=== PATIENT | female | born 1965 | race African-American/Black ===

== ENCOUNTER 2016-12-18 19:56 | Emergency (ER) | payer OTHER ==
--- NOTE | 2016-12-18 20:17 | ED Physician Documentation ---
Headache - HISTORIAN Historian: patient - HPI Chief Complaint: Headache Additional Information: started yesterday. worst headache of her life. front and back and sides, no other symptoms, pain is only symptom. takes BP medicine, when she needs it. her BP is154/86. gets 1 headache a year. tylenol usually works. Onset: days ago Timing: gradual, still present New Gradual Onset: Yes Exposure To: none Severity: mild Quality: throbbing Associated Symptoms: denies: fever, chills, sweating, problems with vision, sensitivity to light, nausea, vomiting, neck pain, stiffness, speech problems, weakness, trouble walking, tingling, numbness, dizziness, light-headedness Preceding Symptoms: denies: visual disturbance, scotoma Exacerbated By: denies: light, noise, movement, position Further Comments: no Last known Well Code/Unknown Code: Unknown - ROS NEURO/PSYCH: denies: confusion EYES/ENT: denies: sore throat, difficulty swallowing CVS/RESP: none GI/: denies: abdominal pain MS/SKIN/LYMPH: denies: muscle aches, back pain all systems neg except as marked: Yes - PAST HX Medical History: hypertension Surgical History: angioplasty, other (thyroid lobectomy 2015) Allergies/Adverse Reactions: Allergies Allergy/AdvReac Type Severity Reaction Status Date / Time morphine Allergy Mild Rash Verified 12/18/16 20:11 prednisone Allergy Verified 12/18/16 20:11 Home Medications: Ambulatory Orders Medication Instructions Recorded Cholecalciferol (Vitamin D3) 5,000 unit PO DAILY av 06/26/14 [Vitamin D3] - SOCIAL HX Smoking History: non-smoker Alcohol Use: none Drug Use: none - Family HX Family History: none - VITAL SIGNS Vital Signs: Vital Signs Temp Pulse Resp BP Pulse Ox 98.3 F 71 16 144/88 98 12/18/16 20:02 12/18/16 20:02 12/18/16 20:02 12/18/16 20:02 12/18/16 20:02 - REVIEWED ASSESSMENTS Nursing Assessment Reviewed: Yes Vitals Reviewed: Yes ED Results Lab/Radiology - Radiology Radiology Impressions: CT neg - Orders Orders: ED Orders Category Date Time Status CT BRAIN W/O CONTRAST Stat Exams 12/18/16 Taken Headache Physical Exam - EXAM General Appearance: no acute distress, alert EENT: no facial swelling, eyes nml inspection, PERRL. No: pain over sinuses Neck: normal inspection Respiratory: no resp distress Abdomen: non-tender Skin: color nml, no rash Extremitites: non-tender, normal range of motion, no evidence of injury - NEURO/PSYCH Higher Functions: alert, oriented x3, nml speech, mood/affect nml Cranial: nml as tested, no evidence of acute CVA Cerebellar: nml as tested Sensorimotor: motor nml, sensation nml Discharge Clincal Impression: Headache Qualifiers: Headache type: unspecified Headache chronicity pattern: acute headache Intractability: intractable Qualified Code(s): R51 - Headache Hypertension Qualifiers: Hypertension type: essential hypertension Qualified Code(s): I10 - Essential ( primary) hypertension Referrals: Primary Doctor,No [Primary Care Provider] - 2 Days Home Medications: Ambulatory Orders Cholecalciferol (Vitamin D3) [Vitamin D3] 5,000 unit PO DAILY av 06/26/14 Condition: Stable Disposition: 01 HOME, SELF-CARE Decision to Admit: NO Date of Decison to Admit: 12/18/16 Decision Time: 21:18
[2016-12-18] MEDS ORDERED: METOCLOPRAMIDE HCL 5 MG TABLET PO ONE (21:15)
[2016-12-18] MEDS ORDERED: KETOROLAC TROMETHAMINE 30 MG/1ML VIAL IM ONE (21:16)
[2016-12-18] MEDS ORDERED: HYDROcodone /APAP 5/325 1 EACH TABLET PO ONE (21:16)
[2016-12-18 21:52] VITALS: BP 154/94
--- NOTE | 2016-12-19 07:01 | Diagnostic Imaging Report ---
JANETT WHITE [facility] [address] [facility] [address] [place] [address]. [address] Report Submission Date: Dec 18, 2016 8:38:01 PM CDT Patient Study Name: HUMBERTO SABILLON Date: Dec 18, 2016 8:22:50 PM CDT Modality Type: CT\SR Gender: F Description: CT BRAIN W/O CONTRAST : 61 Institution: [facility] Physician: JANETT WHITE CT HEAD WO CONTRAST History: HEADACHE THAT STARTED APPROX 24 HOURS AGO, PT STATES WORST HEADACHE SHE 'S EVER HAD Technique: Standard noncontrast CT was performed with contiguous axial images acquired from skull base to vertex. Findings: There is no acute extra-axial fluid collection. Ventricles are of normal size, shape, and morphology. No mass effect or midline shift is present. No evidence of acute hemorrhage. The winters-white matter differentiation is normal. The visualized portions of the orbits, and paranasal sinuses, and mastoids are normal. No fractures are identified. Impression: 1. Normal non contrast brain CT. Electronically signed on Dec 18, 2016 8:38:01 PM CDT by: Shaun Castaneda [facility]
== END 2016-12-18 21:45 | disposition home or self-care (01) ==
LOC: ED 19:56
DX: R51 Headache (principal); I10 Essential (primary) hypertension
CPT/HCPCS: 70450; A9270; J1885; 96372; 99283

== ENCOUNTER 2017-01-11 21:38 | Emergency (ER) | payer OTHER ==
--- NOTE | 2017-01-11 21:53 | ED Physician Documentation ---
General Adult - HISTORIAN Historian: patient - HPI Stated Complaint: headache Chief Complaint: General Adult Onset: days ago Timing: still present Severity: moderate Further Comments: yes (Pt is a 51 yo female with c/o headache. Pt was seen earlier today in clinic and has taken Imitrex x 2. Pt was seen here 12/18/16 for similar headache and had a work-up that included CT scan. Pt has had nausea with headache.) - ROS CONST: no problems EYES/ENT: none CVS/RESP: none GI/: nausea MS/SKIN/LYMPH: none NEURO/PSYCH: headache - PAST HX Past History: hypertension, other (headache, [place], thyroid d/o) Surgeries/Procedures: other (angioplasty) Allergies/Adverse Reactions: Allergies Allergy/AdvReac Type Severity Reaction Status Date / Time morphine Allergy Mild Rash Verified 01/11/17 22:08 prednisone Allergy Verified 01/11/17 22:08 Home Medications: Ambulatory Orders Medication Instructions Recorded Cholecalciferol (Vitamin D3) 5,000 unit PO DAILY av 06/26/14 [Vitamin D3] - SOCIAL HX Smoking History: cigarettes - FAMILY HX Family History: No - VITAL SIGNS Vital Signs: Vital Signs Temp Pulse Resp BP Pulse Ox 154/94 12/18/16 21:45 - REVIEWED ASSESSMENTS Nursing Assessment Reviewed: Yes Vitals Reviewed: Yes Progress - Progress Progress: Toradol 60 mg IM Zofran 4 mg IM some improvement BP 190/93 --> 140/79 Pt drove herself to ER. [place] (5/325) 2 tablets to take at home. General Adult Physical Exam - PHYSICAL EXAM GENERAL APPEARANCE: moderate distress EENT: eye inspection normal, ENT inspection normal, pharynx normal NECK: normal inspection, supple RESPIRATORY: no resp distress, chest non-tender, breath sounds normal CVS: reg rate & rhythm, heart sounds normal ABDOMEN: soft, no organomegaly, normal bowel sounds BACK: normal inspection, no CVA tenderness SKIN: warm/dry, normal color EXTREMITIES: non-tender, normal range of motion, no evidence of injury NEURO: oriented X3, CN's nml as tested, motor nml, sensation nml Discharge Clincal Impression: Headache Qualifiers: Headache type: unspecified Headache chronicity pattern: acute headache Intractability: not intractable Qualified Code(s): R51 - Headache Referrals: Primary Doctor,No [Primary Care Provider] - Condition: Stable Disposition: 01 HOME, SELF-CARE Decision to Admit: NO Decision Time: 23:03
[2017-01-11] MEDS: KETOROLAC TROMETHAMINE 60 MG/2 ML VIAL IM ONE (22:15)
[2017-01-11] MEDS: ONDANSETRON HCL/PF 4 MG/ 2ML VIAL IM ONE (22:15)
[2017-01-11] MEDS: HYDROcodone /APAP 5/325 1 EACH TABLET PO ONE (23:05)
[2017-01-11 23:24] VITALS: BP 140/79
== END 2017-01-11 23:15 | disposition home or self-care (01) ==
LOC: ED 21:38
DX: R51 Headache (principal)
CPT/HCPCS: A9270; J1885; J2405; 96372; 99283

== ENCOUNTER 2017-06-21 17:33 | Emergency (ER) | payer OTHER ==
[2017-06-21] MEDS: CloNIDine HCL 0.1 MG TABLET PO ONE (17:57)
[2017-06-21] MEDS: NALBUPHINE HCL 10 MG/1 ML IM ONE (17:57)
[2017-06-21 18:19] LABS: BASOPHILS % 0.6 (0.0-1.5); EOSINOPHILS % 1.6 % (0.0-6.8); MEAN CORPUSCULAR HEMOGLOBIN 25.5 pg (28.0-34.0); MEAN CORPUSCULAR VOLUME 84.3 fl (80.0-100.0); MONOCYTES % 4.4 % (0.0-11.0); NEUTROPHILS # 4.7 # k/uL (1.4-7.7)
[2017-06-21 18:33] LABS: eGFR (African) > 60; eGFR (Non-African) > 60
--- NOTE | 2017-06-21 18:39 | ED Physician Documentation ---
General Adult - HISTORIAN Historian: patient - HPI Stated Complaint: Right eye pain Chief Complaint: General Adult Further Comments: yes (52 year old female patient presents with complaint of right eye pain and headache. BP on arrival 178/114. Patient states she just took her metoprolol. (75mg po bid). Denies CP, nausea or SOB, denies visual problems or difficulty with vision. Has appointment with her eye doctor in the morning) - ROS CONST: no problems EYES/ENT: none CVS/RESP: none GI/: nausea. denies: abdominal pain, vomiting, diarrhea, black stools MS/SKIN/LYMPH: none NEURO/PSYCH: headache - PAST HX Past History: hypertension, other (CAD) Other History: other (migraine) Allergies/Adverse Reactions: Allergies Allergy/AdvReac Type Severity Reaction Status Date / Time morphine Allergy Mild Rash Verified 06/21/17 17:49 prednisone Allergy Verified 06/21/17 17:49 - SOCIAL HX Smoking History: cigarettes - FAMILY HX Family History: No - VITAL SIGNS Vital Signs: Vital Signs Temp Pulse Resp BP Pulse Ox 97.6 F 86 20 178/114 96 06/21/17 17:44 06/21/17 17:44 06/21/17 17:44 06/21/17 17:44 06/21/17 17:44 - REVIEWED ASSESSMENTS Nursing Assessment Reviewed: Yes Vitals Reviewed: Yes Progress - Progress Progress: Pain resolved after clonidine and nubain; BP down to 127/68 Instructed patient to keep daily BP log - take BP in morning and after dinner and follow up next week with Dr Patiño. ED Results Lab/Radiology - Lab Results Lab Results: Lab Results 06/21/17 06/21/17 18:05 18:05 WBC 6.90 K/ul K/ul (4.00-12.00) RBC 4.80 M/ul M/ul (3.90-5.20) Hgb 12.3 g/dL g/dL (12.0-16.0) Hct 40.5 % % (34.5-46.5) MCV 84.3 fl fl (80.0-100.0) MCH 25.5 pg L pg (28.0-34.0) MCHC 30.3 g/dL g/dL (30.0-36.0) RDW 14.0 % % (11.3-14.3) Plt Count 242 K/mm3 K/mm3 (130-400) Neut % (Auto) 68.7 % % (39.0-79.0) Lymph % (Auto) 23.2 % % (16.0-50.0) [place] % (Auto) 4.4 % % (0.0-11.0) Eos % (Auto) 1.6 % % (0.0-6.8) Baso % (Auto) 0.6 (0.0-1.5) Neut # (Auto) 4.7 # k/uL # k/uL (1.4-7.7) Lymph # (Auto) 1.6 # k/uL # k/uL (0.6-4.0) [place] # (Auto) 0.3 # k/uL # k/uL (0.0-0.9) Eos # (Auto) 0.1 # k/uL # k/uL (0.0-0.6) Baso # (Auto) 0.0 # k/uL # k/uL (0.0-0.5) Reactive Lymphs % 1.4 % % (0.0-5.0) Reactive Lymphs # 0.1 # k/uL # k/uL (0.0-0.8) Sodium 143 mmol/L mmol/L (136-145) Potassium 3.2 mmol/L L mmol/L (3.5-5.1) Chloride 109 mmol/L H mmol/L (98-107) Carbon Dioxide 23 mmol/L mmol/L (22-30) BUN 17 mg/dL mg/dL (7-17) Creatinine 0.80 mg/dL mg/dL (0.52-1.04) Estimated Creat Clear 155 Est GFR ( Amer) > 60 (60 - ) Est GFR (Non-Af Amer) > 60 (60 - ) Glucose 151 mg/dL H mg/dL (74-106) Calcium 9.6 mg/dL mg/dL (8.4-10.2) Total Bilirubin 0.6 mg/dL mg/dL (0.2-1.3) AST 22 U/L U/L (15-46) ALT 32 U/L U/L (13-69) Alkaline Phosphatase 138 U/L H U/L (38-126) Total Protein 7.3 g/dL g/dL (6.3-8.2) Albumin 4.0 g/dL g/dL (3.5-5.0) - Orders Orders: ED Orders Category Date Time Status CBC/PLATELET/DIFF Stat Lab 06/21/17 18:05 Completed CMP Stat Lab 06/21/17 18:05 Completed CloNIDine HCL [Catapress] Med 06/21/17 17:48 Discontinued 0.1 mg PO NOW ONE Nalbuphine HCl [Nubain] Med 06/21/17 17:48 Discontinued 10 mg IM NOW ONE General Adult Physical Exam - PHYSICAL EXAM GENERAL APPEARANCE: mild distress EENT: eye inspection normal, ENT inspection normal, pharynx normal, no signs of dehydration, PAOLA, no nystagmus, TM's nml, other (visual acuity - see nursing documentation) RESPIRATORY: no resp distress, chest non-tender, breath sounds normal CVS: reg rate & rhythm, heart sounds normal, equal pulses, no murmur, no gallop , PMI nml, no JVD, no friction rub, 24 ABDOMEN: soft, no organomegaly, normal bowel sounds, no abdominal bruit, no distension SKIN: normal color, warm/dry, NR, INT, PAL, DR EXTREMITIES: non-tender, normal range of motion, no evidence of injury, no edema , J, BUSHEL GIRL NEURO: oriented X3, CN's nml as tested, motor nml, sensation nml, mood/affect nml Discharge Clincal Impression: Acute right eye pain Hypertension Qualifiers: Hypertension type: essential hypertension Qualified Code(s): I10 - Essential ( primary) hypertension Headache Qualifiers: Headache type: tension-type Headache chronicity pattern: acute headache Intractability: not intractable Qualified Code(s): G44.209 - Tension-type headache, unspecified, not intractable Referrals: Primary Doctor,No [Primary Care Provider] - 2 Days Condition: Stable Disposition: 01 HOME, SELF-CARE Decision to Admit: NO Decision Time: 19:05
[2017-06-21] MEDS: POTASSIUM CHLORIDE 20 MEQ TABLET.ER PO ONE (18:50)
[2017-06-21] MEDS: ONDANSETRON HCL 4 MG TAB.RAPDIS PO ONE (19:10)
[2017-06-21] MEDS: ONDANSETRON HCL 4 MG TAB.RAPDIS ONE (19:15)
[2017-06-21 19:18] VITALS: BP 126/69
== END 2017-06-21 19:00 | disposition home or self-care (01) ==
LOC: ED 17:33
DX: G44.209 Tension-type headache, unspecified, not intractable (principal); H57.11 Ocular pain, right eye; I10 Essential (primary) hypertension
CPT/HCPCS: 80053; 85025; A9270; J2300; 96372; 99283

== ENCOUNTER 2017-10-25 15:30 | Outpatient (CLI) | payer OTHER | END 2017-10-25 15:56 | LOC: LABRHC 15:30 | PROVIDERS: ATTEND Family Medicine | DX: R10.9 Unspecified abdominal pain (principal) | CPT/HCPCS: 87086 ==

== ENCOUNTER 2017-10-26 09:36 | Outpatient (CLI) | payer OTHER ==
--- NOTE | 2017-10-26 13:46 | Diagnostic Imaging Report ---
TAYA ANG [facility] [address] [facility] [address] [address] Report Submission Date: Oct 26, 2017 10:29:12 AM CDT Patient Study Name: HUMBERTO SABILLON Date: Oct 26, 2017 10:00:07 AM CDT Modality Type: US Gender: F Description: : 61 Institution: [facility] Physician: TAYA ANG Renal ultrasound History: Right flank pain Transverse and longitudinal images were obtained through the kidneys and bladder. Both kidneys demonstrate normal corticomedullary distinction without hydronephrosis, evident mass or evident stone. The bladder is unremarkable. The right kidney measures 10.6 x 5.1 x 5.7 cm. The left kidney measures 10.4 x 6 0 x 6.0 cm in greatest dimension. Impression: Normal renal ultrasound. Electronically signed on Oct 26, 2017 10:29:12 AM CDT by: Era JAY
== END 2017-10-26 09:43 ==
LOC: RAD 09:36
PROVIDERS: ATTEND Family Medicine
DX: R10.9 Unspecified abdominal pain (principal)
CPT/HCPCS: 76775

== ENCOUNTER 2018-02-03 15:07 | Outpatient (CLI) | payer OTHER | END 2018-02-03 15:35 | LOC: LAB 15:07 | PROVIDERS: ATTEND Family Medicine | DX: E04.1 Nontoxic single thyroid nodule (principal) | CPT/HCPCS: 36415; 84443 ==

== ENCOUNTER 2018-06-14 15:32 | Outpatient (CLI) | payer OTHER ==
[2018-06-14 15:52] LABS: BASOPHILS % 0.4 (0.0-1.5); EOSINOPHILS % 1.7 % (0.0-6.8); MEAN CORPUSCULAR HEMOGLOBIN 25.3 pg (28.0-34.0); NEUTROPHILS # 3.8 # k/uL (1.4-7.7)
[2018-06-14 16:31] LABS: eGFR (Non-African) > 60
--- NOTE | 2018-06-14 17:39 | Diagnostic Imaging Report ---
TAYA ANG [facility] [id number] Counts Include 234 Beds At [facility] [address] [place] [address]. [address] Report Submission Date: Jun 14, 2018 4:20:22 PM CHIEF ENGINEER RESEARCH Patient Study Name: HUMBERTO SABILLON Date: Jun 14, 2018 3:46:52 PM CHIEF ENGINEER RESEARCH Modality Type: DX Gender: F Description: ABD COMPLETE : 61 Institution: [facility] Physician: TAYA ANG Examination: Abdomen complete. History: PT STATES SEVERE ABD PAIN, HURTS TO LAY DOWN Findings: 2 views obtained of the abdomen. No abnormal dilation of the large or small bowel. Significant stool throughout the large bowel. No suspicious calcification projecting over the renal fossa or the lower pelvic region. Osseous structures are appropriate for age. Impression: Significant large bowel stool. No abnormal bowel dilation. Electronically signed on Jun 14, 2018 4:20:22 PM CHIEF ENGINEER RESEARCH by: Lawson JAY
== END 2018-06-14 15:33 ==
LOC: LAB 15:32
PROVIDERS: ATTEND Family Medicine
DX: R10.11 Right upper quadrant pain (principal)
CPT/HCPCS: 36415; 74019; 80053; 85025

== ENCOUNTER 2018-06-15 09:01 | Outpatient (CLI) | payer OTHER ==
--- NOTE | 2018-06-15 14:14 | Diagnostic Imaging Report ---
TAYA ANG [facility] [address] [facility] [address] [address] Report Submission Date: Jun 15, 2018 9:53:01 AM LOOM BLOWER Patient Study Name: HUMBERTO SABILLON Date: Jun 15, 2018 9:09:02 AM LOOM BLOWER Modality Type: US Gender: F Description: US ABDOMEN LIMITED : 61 Institution: [facility] Physician: TAYA ANG Examination: Ultrasound abdomen limited. History: RUQ Findings: Sonographic evaluation of the right upper quadrant demonstrates the gallbladder without stones or sludge. Gallbladder wall does not appear to be thickened. Common bile duct reportedly measures 5 mm. No intrahepatic biliary dilation. Liver demonstrates increased echogenicity. No mass or cyst. Normal flow on color analysis. Right kidney measures 10.9 cm in length. No cortical mass or cyst. No hydronephrosis. Pancreatic region without gross irregularity. Impression: No gallstone. Fatty liver. Electronically signed on Jun 15, 2018 9:53:01 AM LOOM BLOWER by: Lawson JAY
== END 2018-06-15 09:03 ==
LOC: RAD 09:01
PROVIDERS: ATTEND Family Medicine
DX: R10.11 Right upper quadrant pain (principal)
CPT/HCPCS: 76705

== ENCOUNTER 2019-01-18 02:15 | Emergency (ER) | payer OTHER ==
[2018-08-18 02:44] VITALS: BP 157/87
[2019-01-18] MEDS ORDERED: KETOROLAC TROMETHAMINE 30 MG/1ML VIAL ONE (02:37)
[2019-01-18] MEDS ORDERED: diphenhydrAMINE HCL 50 MG/ML VIAL ONE (02:37)
[2019-01-18] MEDS ORDERED: NORMAL SALINE 500 ML IV.SOLN IV ONE (02:37)
[2019-01-18] MEDS ORDERED: DEXAMETHASONE SOD PHOS 4 MG/ML VIAL ONE (02:37)
== END 2019-01-18 04:35 | disposition home or self-care (01) ==
LOC: ED 02:15
DX: R51 Headache (principal)
CPT/HCPCS: 99282; J1100; J1200; J1885; J7060; S1016

== ENCOUNTER 2019-01-24 15:18 | Emergency (ER) | payer OTHER ==
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
[2019-01-24 16:35] VITALS: BP 126/69
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
== END 2019-01-24 16:34 | disposition home or self-care (01) ==
LOC: ED 15:18
DX: S02.2XXA Fracture of nasal bones, initial encounter for closed fracture (principal); Y04.0XXA Assault by unarmed brawl or fight, initial encounter; Y92.009 Unspecified place in unspecified non-institutional (private) residence as the place of occurrence of the external cause; Y99.0 Civilian activity done for income or pay
CPT/HCPCS: 70160; 99283; 99284